=== PATIENT | male | born 1990 | race Hispanic/Latino ===

== ENCOUNTER 2017-12-02 14:23 | Emergency (ER) | payer SELFPAY ==
[2017-12-02] MEDS ORDERED: TETANUS/DIPHTHERIA TOXOID [ADULT] 0.5 ML VIAL IM ONE (16:25)
[2017-12-02] MEDS ORDERED: ACETAMINOPHEN 325 MG TAB ONE (16:25)
== END 2017-12-02 16:48 | disposition home or self-care (01) ==
LOC: EDH 14:23
DX: S10.81XA Abrasion of other specified part of neck, initial encounter (principal); J45.909 Unspecified asthma, uncomplicated; Z21 Asymptomatic human immunodeficiency virus [HIV] infection status; X99.8XXA Assault by other sharp object, initial encounter; Y93.89 Activity, other specified; Y92.89 Other specified places as the place of occurrence of the external cause; Y99.8 Other external cause status
CPT/HCPCS: 90471; 90714